=== PATIENT | male | born 1970 | race Caucasian/White ===

== ENCOUNTER 2022-11-13 10:42 | Emergency (ER) | payer BC | END 2022-11-13 13:30 | disposition home or self-care (01) | LOC: ERS 10:42 | DX: I82.611 Acute embolism and thrombosis of superficial veins of right upper extremity (principal); E11.9 Type 2 diabetes mellitus without complications; I10 Essential (primary) hypertension; E78.5 Hyperlipidemia, unspecified; F17.210 Nicotine dependence, cigarettes, uncomplicated ==